=== PATIENT | male | born 1940 | race Caucasian/White ===

== ENCOUNTER 2016-06-04 17:39 | Emergency (ER) | payer OTHER ==
[~2016-06-04] VITALS: Ht 162.6 cm; Wt 77.1 kg
--- NOTE | 2016-06-04 17:51 | ED MVC/FALL/TRAUMA COMPLAINT ---
History of Present Illness General Chief Complaint: Fall Stated Complaint: FALL Source: patient Exam Limitations: no limitations Vital Signs & Intake/Output Vital Signs & Intake/Output Vital Signs Date Time Temp Pulse Resp B/P B/P Pulse O2 O2 Flow FiO2 Mean Ox Delivery Rate 06/04 2022 58 18 180/70 97 06/04 1904 59 200/90 06/04 1826 Room Air Room Air 06/043 59 15 20090 06/04 1740 98.0 69 15 210/108 98 Allergies Coded Allergies: Sulfa (Sulfonamide Antibiotics) (PER FACILITY PAPERWORK 06/04/16) Triage Nurses Notes Reviewed? yes Duration: better Severity: moderate Severity Numbers: 5 Injuries/Fall Location: head, back Method of Injury: direct blow, fall Loss of Consciousness: no loss of consciousness No Modifying Factors: none HPI: Patient is a 76-year-old male with a past medical history of type 2 diabetes hypertension and hyperlipidemia who presents to emergency room stating that for the past 3 days which patient lives in a assisted care living facility he has been complaining of dizziness symptoms upon ambulation which patient does use a cane for fall prevention however today symptoms worsens 1 patient was walking in the [place] the [place] where he was dizzy and symptoms were severe enough that he fell to his buttock region and subsequently fell back and struck the posterior aspect of his head to the wall. She denies losing consciousness. Patient was brought in by ambulance. Denies any neck pain back pain abdominal pain blurred vision nausea vomiting. Does complain of mild headache (BRENDEN CORDOVA) Past History Travel History Traveled to [place] past 21 day No Medical History Any Pertinent Medical History? see below for history Cardiovascular: hypertension, hyperlipidemia Endocrine: diabetes Surgical History Surgical History: non-contributory Family History Hx Contributory? No (BRENDEN CORDOVA) Review of Systems Review of Systems Constitutional: Reports: no symptoms. Eyes: Reports: no symptoms. Ears, Nose, Throat, Mouth: Reports: no symptoms. Respiratory: Reports: no symptoms. Cardiovascular: Reports: no symptoms. Gastrointestinal/Abdominal: Reports: no symptoms. Genitourinary: Reports: no symptoms. Musculoskeletal: Reports: see HPI. Skin: Reports: no symptoms. Neurological/Psychological: Reports: see HPI, headache. All Other Systems: Reviewed and Negative (BRENDEN CORDOVA) Physical Exam Physical Exam General Appearance: no apparent distress, alert, awake, comfortable Comments: Well-developed well-nourished person in no acute distress HEENT: Normal EENT exam, extraocular motion intact, no nystagmus. Pupils equally round and reactive to light and accommodation. Nose is atraumatic. External auditory canal and Tympanic membranes clear. Pharynx normal. No swelling or edema. Neck: Supple, no lymphadenopathy, normal range of motion without pain or tenderness Back: Nontender, no CVA tenderness. Cardiovascular: Regular rate and rhythms no murmurs rubs or gallops, normal JVP Respiratory: Chest nontender. No respiratory distress.breath sounds clear to auscultation bilaterally Abdomen: Soft, nontender nondistended, no appreciable organomegaly. Normal bowel sounds. No ascites Extremity: No edema, no calf tenderness to palpation, normal and equal pulses. Neuro: Alert oriented x3, motor sensory normal, cranial nerves II through XII grossly intact. Skin: No appreciable rash on exposed skin, skin is warm and dry. Psych: Mood and affect is normal, memory and judgment is normal. Diagram Head: 1) 3 cm scalp hematoma noted no bleeding skin intact Core Measures ACS in differential dx? No Severe Sepsis Present: No Septic Shock Present: No (BRENDEN CORDOVA) Progress Differential Diagnosis: aoritic dissection, abd injury, C/T/L spine injury, ext injury, ICH, pelvis injury, pnemothorax, spinal cord injury Plan of Care: Orders Procedure Date/time Status CASE MANAGEMENT CONSULT 06/04 2049 Active Add-on Test (ER Only) 06/04 1950 Active Discontinue Telemetry/Monitor 06/04 1804 Active MAGNESIUM 06/04 1800 Complete TROPONIN LEVEL 06/04 1743 Complete COMPREHENSIVE METABOLIC PANEL 06/04 1743 Complete CBC WITHOUT DIFFERENTIAL 06/04 1743 Complete EKG 06/04 1743 Active Laboratory Tests 06/04/16 1800: Anion Gap 12, Estimated GFR > 60, BUN/Creatinine Ratio 20.0, Glucose 125 H, Calcium 9.5, Magnesium 1.8, Total Bilirubin 0.5, AST 25, ALT 32, Alkaline Phosphatase 97, Troponin I < 0.01, Total Protein 7.3, Albumin 4.4, Globulin 2.9, Albumin/Globulin Ratio 1.5, CBC w Diff NO MAN DIFF REQ, RBC 4.45 L, MCV 95.5 H , MCH 31.7 H, RDW 13.0, MPV 6.7 L, Gran % 70.0, Lymphocytes % 18.8 L, Monocytes % 10.3 H, Eosinophils % 0.6, Basophils % 0.3, Absolute Granulocytes 6.5, Absolute Lymphocytes 1.8, Absolute Monocytes 1.0 H, Absolute Eosinophils 0.1, Absolute Basophils 0, PUBS MCHC 33.2 Patient currently is resting comfortably and is alert and oriented no central spinous tenderness CT scan was resulted unremarkable findings blood work unremarkable patient does however have manual blood pressure concerns of elevated blood pressure of 200/90 labetalol IV was administered. It is noted by me by nursing staff and under my supervision that patient had normal steady gait USING a cane and was asymptomatic. Patient at this time shows no signs of confusion or disorientation had normal steady gait after multiple episodes of ambulation. Patient had improvement of elevated blood pressure in the emergency room patient was strongly advised to continue using cane for fall prevention. Case management evaluated the patient will provide home health services for physical therapy. Patient was strongly advised to follow up with primary care doctor tomorrow for blood pressure and medication reconciliation evaluation. Upon discharge patient looks well no apparent distress and will comply with discharge instructions and had no questions. Patient was transported via [facility] back to [facility] Discussed disposition and plan with DR. AYOUB (GHULAM JOHN,BRENDEN) Diagnostic Imaging: Viewed by Me: CT Scan. Radiology Impression: no acute abnormality Initial ED EKG: normal intervals, normal p-waves, normal QRS complex, 62 BPM, NSR, lad Comments: PATIENT: MARC CORRAL PRESENT AGE: 76 PATIENT ACCOUNT NO: [id number] : 40 LOCATION: [facility] ORDERING PHYSICIAN: BRENDEN JOHN SERVICE DATE: 06/04/16 EXAM TYPE: CAT - CT HEAD WO IV CONTRAST EXAMINATION: CT HEAD WITHOUT CONTRAST CLINICAL INFORMATION: Trauma to head. COMPARISON: None. TECHNIQUE: Contiguous helical images of the brain were obtained without IV contrast. Multiplanar reconstructions were performed. DLP: 601 mGy-cm. FINDINGS: There are no pathologic extra-axial fluid collections. The lateral, third, fourth ventricles are prominent, but age-appropriate and concordant with the appearance of the sulci. There is no evidence for acute intraparenchymal hemorrhage or infarct. There is neither mass nor mass effect. There is no shift of midline structures. The paranasal sinuses and mastoid air cells are clear. There are no osseous lesions. IMPRESSION: No evidence for acute intracranial injury. DICTATED BY: KENNY MAHER MD DATE/TIME DICTATED:06/04/161823 OPERATING ROOM COORDINATOR:HAILEE (BRENDEN CORDOVA) Departure Departure Disposition: HOME OR SELF CARE Condition: Stable Clinical Impression Primary Impression: Dizziness Secondary Impressions: Hypertension, Scalp hematoma Referrals: LES BOWEN,KASANDRA Covarrubias (PCP/Family) Additional Instructions: As discussed at all Times continue to use the cane for fall prevention. Continue home medications. Tomorrow follow up with her primary care doctor for evaluation of your blood pressure If symptoms worsen return to emergency room. You should receive a phone call for home health services for physical therapy for fall prevention. Departure Forms: Customer Survey General Discharge Information (BRENDEN CORDOVA) PA/ROVING WINDER Co-Sign Statement Statement: ED Attending supervision documentation- [X] I saw and evaluated the patient. I have also reviewed all the pertinent lab results and diagnostic results. I agree with the findings and the plan of care as documented in the PA's/ROVING WINDER's documentation. [X] I have reviewed the ED Record and agree with the PA's/ROVING WINDER's documentation. [] Additions or exceptions (if any) to the PAs/ROVING WINDER's note and plan are summarized below: [] (MEGA BOWEN,MORALES)
[2016-06-04 18:11] LABS: ABSOLUTE BASOPHIL COUNT 0 /CUMM (0.0-0.2); ABSOLUTE EOSINOPHIL COUNT 0.1 /CUMM (0.0-0.7); ABSOLUTE GRANULOCYTE CT 6.5 /CUMM (1.4-6.5); ABSOLUTE LYMPH COUNT 1.8 /CUMM (1.2-3.4); BASOPHIL % 0.3 % (0.0-2.0); EOSINOPHIL % 0.6 % (0-5); HEMATOCRIT 42.5 % (42-52); MEAN CORPUSCULAR HGB 31.7 PG (27.0-31.0); MEAN CORPUSCULAR HGB CONC 33.2 G/DL (33.0-37.0); MEAN CORPUSCULAR VOLUME 95.5 FL (80.0-94.0); MEAN PLATELET VOLUME 6.7 FL (7.4-10.4); PLATELET COUNT 325 /CUMM (130-400); RED BLOOD CELL CT 4.45 /CUMM (4.70-6.10); WHITE BLOOD CELL COUNT 9.3 /CUMM (4.8-10.8)
--- NOTE | 2016-06-04 18:30 | CT SCAN REPORT ---
EXAMINATION: CT HEAD WITHOUT CONTRAST CLINICAL INFORMATION: Trauma to head. COMPARISON: None. TECHNIQUE: Contiguous helical images of the brain were obtained without IV contrast. Multiplanar reconstructions were performed. DLP: 601 mGy-cm. FINDINGS: There are no pathologic extra-axial fluid collections. The lateral, third, fourth ventricles are prominent, but age-appropriate and concordant with the appearance of the sulci. There is no evidence for acute intraparenchymal hemorrhage or infarct. There is neither mass nor mass effect. There is no shift of midline structures. The paranasal sinuses and mastoid air cells are clear. There are no osseous lesions. IMPRESSION: No evidence for acute intracranial injury.
[2016-06-04 21:23] VITALS: BP 174/73
== END 2016-06-04 21:25 ==
LOC: ERH 17:39
PROVIDERS: Emergency Medicine
DX: S00.03XA Contusion of scalp, initial encounter (principal); I10 Essential (primary) hypertension; R42 Dizziness and giddiness
CPT/HCPCS: 93005; 93010; 96374; 96375